=== PATIENT | male | born 1960 | race Asian ===

== ENCOUNTER 2020-12-30 04:21 | Emergency (ER) | payer OTHER, SELFPAY ==
[~2020-12-30] VITALS: Ht 172.7 cm; Wt 61.4 kg
[2020-12-30 04:22] VITALS: BP 149/85
== END 2020-12-30 04:50 ==
LOC: EMS 04:22
DX: Z04.1 Encounter for examination and observation following transport accident (principal)
CPT/HCPCS: 99283; Z7502